=== PATIENT | female | born 1965 | race Caucasian/White ===

== ENCOUNTER 2017-01-07 00:40 | Observation (INO) ==
[2017-01-07] MEDS ORDERED: Aspirin 81 MG TAB.CHEW PO ONE (01:00)
[2017-01-07] MEDS ORDERED: cloNIDine HCl 0.1 MG TABLET PO STA (01:01)
--- NOTE | 2017-01-07 01:01 | Emergency Department Note ---
Disposition Clinical Impression: Chest pain Disposition: Admitted As Inpatient Condition: Fair Referrals: Brendon Ruiz MD [Primary Care Provider] - Time of Disposition: 03:13 ([facility]) Chest Pain HPI - General Chief Complaint: ED Chest Pain Stated Complaint: EPIGASTRIC PAIN/MULTIPLE COMPLAINTS Time Seen by Provider: 01/07/17 00:46 Source: patient Mode of arrival: ambulatory Limitations: no limitations Vital Signs Reviewed: Yes Nursing Notes Reviewed: Yes - History of Present Illness HPI Narrative: As a multitude of complaints she states that she has been having intermittent swelling of the lower extremities left is more common in the right in addition that she has been having intermittent chest pain off and on for a period of time really cannot quantitate how many days or whether it is hours but has had some radiation into the neck heaviness on the chest denies any nausea vomiting or diaphoresis denies diarrhea melena hematochezia or hematemesis patient states though that she just has a very uneasy feeling she can tell that her blood pressures up she denies any neck pain or neck stiffness she has not followed with her family physician in regards to any of these complaints prior to today of any chest pain chest pressure leg pain swelling or edema rash or lesion she does have some underlying health issues which does put her a higher risk for having cardiac disease she has had a previous history of myocardial infarction Pt complaint: chest pain Onset (ago): hour(s) Duration: intermittent Onset: during rest Pain Location: substernal Severity: moderate Severity scale (1-10): 6 Quality: aching Pain Radiation: none Improves with: nothing Worsens with: exertion Associated symptoms: Reports: nausea, dyspnea, palpitations. Denies: vomiting, diaphoresis, sense of impending doom, syncope, fever, cough, leg swelling Treatments prior to arrival chest pain: aspirin - Related Data Home Medications Medication Instructions Recorded Confirmed Aspirin Enteric Coated [Aspirin EC] 81 mg PO DAILY 09/21/14 01/07/17 Gabapentin [Neurontin] 600 mg PO QID 09/21/14 01/07/17 Lisinopril/Hydrochlorothiazide 20 mg PO BID 09/21/14 01/07/17 [Lisinopril-Hctz 20-12.5 mg Tab] Metformin HCl [Fortamet] 1,000 mg PO BID 09/21/14 01/07/17 Metoprolol [Lopressor] 50 mg PO BID 09/21/14 01/07/17 Tizanidine HCl [Zanaflex] 4 mg PO BID 09/21/14 01/07/17 Omeprazole [Omeprazole] 20 mg PO DAILY 08/15/15 01/07/17 Oxycodone HCl/Acetaminophen 1 each PO PRN PRN 06/25/16 01/07/17 [Percocet 10-325 mg Tablet] Previous Rx's Medication Instructions Recorded Loratadine [Claritin] 10 mg PO DAILY #5 tablet 11/27/14 Ipratropium/Albuterol Neb [Duoneb] 3 ml IH Q6HR #30 vial.neb 08/15/15 Ibuprofen [Motrin] 800 mg PO Q8HR PRN #30 tablet 05/24/16 Cyclobenzaprine [Flexeril] 10 mg PO TID #15 tablet 06/25/16 Allergies Allergy/AdvReac Type Severity Reaction Status Date / Time Sulfa (Sulfonamide Allergy Unresponsiv Verified 08/06/16 20:19 Antibiotics) e codeine AdvReac Nausea Verified 08/06/16 20:19 All systems ED: reviewed and negative except as stated. Review of Systems: As Per HPI Constitutional: Reports: weakness. Denies: fever, chills Eyes: Denies: eye pain, eye discharge ENT ED: Denies: ear pain, throat pain Cardiovascular: Denies: chest pain, palpitations Respiratory: Reports: dyspnea. Denies: cough, wheezes Gastrointestinal: Denies: abdominal pain, nausea, vomiting Genitourinary: Denies: urgency, dysuria Musculoskeletal: Denies: back pain, neck pain Integumentary: Denies: rash, abrasion Neurological: Denies: headache, weakness Psychiatric: Denies: anxiety, depression Endocrine: Denies: fatigue Hematological/Lymphatic: Denies: easy bleeding Allergic/Immunologic: Denies: facial swelling Chest Pain PMH - Past Medical History Medical history: Reports: asthma, cancer, COPD, diabetes, fibromyalgia, hypertension, kidney stones, migraine, myocardial infarction, other Surgical history: Reports: cholecystectomy, herniorrhaphy, hysterectomy, orthopedic, other (Patient states she has had multiple surgeries to her cervical spine.), other (Tonsillectomy) Psychiatric history: Reports: no psych history 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 - Social History Smoking Status: Current every day smoker Alcohol use: Reports: none Drug use: Reports: none Physical Exam - General Limitations: no limitations General appearance: alert, in no apparent distress, anxious - Head Head exam: atraumatic, normocephalic, normal inspection - Eye Eye exam: Present: normal appearance, PERRL, EOMI - ENT ENT exam: normal exam, normal oropharynx, mucous membranes moist, normal external ear exam - Neck Neck exam: Present: normal inspection, full ROM, trachea midline - Chest Chest inspection: Present: normal inspection, symmetric chest wall rise - Respiratory Respiratory exam: Present: normal lung sounds bilaterally - Cardiovascular Cardiovascular exam: Present: regular rate, normal rhythm, normal heart sounds - Abdominal Exam Abdominal exam: Present: soft, Non-Tender, normal bowel sounds. Absent: mass, pulsatile mass - Expanded Upper Extremity Exam Shoulder exam: Present: normal inspection, full ROM Arm exam: Present: normal inspection, full ROM Elbow exam: Present: normal inspection, full ROM Forearm/Wrist exam: Present: normal inspection, full ROM Hand exam: Present: normal inspection, full ROM Neurosensory exam: Normal: radial nerve, ulnar nerve, median nerve Vascular exam: Normal: capillary refill, radial pulse, ulnar pulse - Expanded Lower Extremity Exam Hip/Pelvis exam: Present: normal inspection, full ROM Upper leg exam: Present: normal inspection, full ROM Knee exam: Present: normal inspection, full ROM Lower leg exam: Present: normal inspection, full ROM. Absent: Homans' sign Ankle exam: Present: normal inspection, full ROM, swelling (Faint) Foot/toe exam: Present: normal inspection, full ROM, swelling (faint) Neurovascular/Tendon exam: Present: normal capillary refill, normal fine/light touch. Absent: motor deficit, sensory deficit, tendon deficit Gait: observed and normal - Back Exam Back exam: Present: normal inspection, full ROM. Absent: muscle spasm - Neurological Exam Neurological exam: Present: alert, oriented X3, CN II-XII intact - Psychiatric Psychiatric exam: Present: normal affect, normal mood, anxious - Skin Skin exam: Present: warm, dry, intact, normal color Course Course Narrative: Patient seen and examined patient had multiple system workup to try to determine etiologies for her discomfort including that of pulmonary emboli myocardial infarction angina patient resting comfortably at time Vital Signs Temperature 97.9 F 01/07/17 00:46 Pulse Rate 74 01/07/17 00:46 Respiratory Rate 22 01/07/17 00:46 Blood Pressure 194/117 01/07/17 00:46 O2 Sat by Pulse Oximetry 94 01/07/17 00:46 Temperature 97.9 F 01/07/17 00:47 Pulse Rate 74 01/07/17 00:47 Respiratory Rate 22 01/07/17 00:47 Blood Pressure 194/117 01/07/17 00:47 O2 Sat by Pulse Oximetry 94 01/07/17 00:47 Oxygen Delivery Oxygen Delivery Room Air Chest Pain - MDM Narrative Medical decision making narrative: Pulmonary emboli congestive heart failure effusion myopathy - Differential Diagnosis Likely: unstable angina pectoris, st elevation myocardial infraction, chest pain - Medical Records Medical records reviewed: Yes I reviewed the patient's medical records. - Lab Data Lab results reviewed: Yes I reviewed the patient's lab results. - Radiology Data Radiology results reviewed: Yes I reviewed the patient's radiology results. ITS Impressions Chest X-Ray 01/07/17 00:59 IMPRESSION: No acute disease. D/ / Alireza Ross MD / Alireza Ross MD Interpreting Provider: Alireza Ross MD Chest CTA 01/07/17 01:29 IMPRESSION: No definite evidence of pulmonary embolism or acute pulmonary abnormality. D/ / Alireza Ross MD / Alireza Ross MD Interpreting Provider: Alireza Ross MD - EKG Data EKG attestation: Yes I reviewed and interpreted this EKG. EKG results narrative: Sinus rhythm T-wave changes noted in 1 aVL and V6 ane pattern somewhat noted rate 76 hear 151 QRS 101 Q-T 376 axis XLIX Heart Score - Score History: Moderately Suspicious EKG: Non Specific repolarisation Disturbance Age: 45-65 Risk Factors: Equal/Greater than 3 risk factor or history of atherosclerotic disease Critical Care Time Critical Care Time: No
[2017-01-07 01:14] LABS: Basophils # 0.1 K/mcL (0.0-0.2); Basophils % 0.5 %; Eosinophils # 0.3 K/mcL (0.0-0.6); Eosinophils % 2.3 %; Hematocrit 45.2 % (35.3-44.9); Hemoglobin 15.4 g/dL (11.5-15.4); Immature Granulocytes % 0.4 % (0-4); Lymphocytes # 3.6 K/mcL (0.6-4.6); Lymphocytes % 27.4 %; Mean Corpuscular HGB Conc 34.1 g/dL (31.6-35.5); Mean Corpuscular Hemoglobin 30.1 pg (28.0-33.3); Mean Corpuscular Volume 88.5 fL (83.0-100.0); Mean Platelet Volume 9.9 fL (9.4-12.4); Monocytes # 1.1 K/mcL (0.0-1.3); Monocytes % 8.4 %; Neutrophils # 8.1 K/mcL (1.6-8.9); Platelet Count 289 K/mcL (140-400); Red Blood Count 5.11 M/mcL (3.82-4.97); Red Cell Distribution Width 13.6 % (11.5-14.5)
[2017-01-07 01:22] LABS: INR 1.1; Prothrombin Time 11.8 Seconds (9.4-12.1)
[2017-01-07 01:31] LABS: BUN/Creatinine Ratio 20 (6-26); Blood Urea Nitrogen 19 mg/dL (7-20); Carbon Dioxide 21 mEq/L (19-29); Chloride 100 mEq/L (98-109); Glucose 145 mg/dL (70-99); Osmolality,Calculated 289 (280-300); Potassium 3.9 mEq/L (3.5-4.5); Sodium 137 mEq/L (136-145); eGFR For African Americans > 60 (> 60); eGFR For Non-African Americans > 60 (> 60)
[2017-01-07 01:54] LABS: Thyroid Stimulating Hormone 4.227 mcIU/mL (0.350-4.840)
[2017-01-07] MEDS ORDERED: D5% in Water 1,000 ML IVC PRN (03:53)
[2017-01-07] MEDS ORDERED: *HR* OxyCODONE/APAP 10/325 TABLET PO PRN ×4 (03:53→06:14)
[2017-01-07] MEDS ORDERED: *HR* HYDROcodone/Acet 5/325 mg TABLET PO PRN ×2 (03:53→05:34)
[2017-01-07] MEDS ORDERED: *HR* Dextrose 50 % in Water (Syg) 50 ML SYRINGE IVP PRN (03:53)
[2017-01-07] MEDS ORDERED: Ibuprofen 800 MG TABLET PO PRN ×2 (03:53→05:27)
[2017-01-07] MEDS ORDERED: Mag Hydrox/Al Hydrox/Simeth 30 ML UDC PO PRN (03:53)
[2017-01-07] MEDS ORDERED: Dextrose Gel 15 GM PO PRN ×2 (03:53)
[2017-01-07] MEDS ORDERED: Naloxone 0.4 MG/ML INJ IVP PRN (03:53)
[2017-01-07] MEDS ORDERED: Ipratropium/Albuterol Neb 3 ML IH SCH (06:00)
[2017-01-07 06:43] VITALS: BP 147/80
[2017-01-07] MEDS ORDERED: Insulin LISPRO 300 UNITS/3 ML VIAL SQ SCH (07:30)
[2017-01-07] MEDS ORDERED: *HR* Metformin 500 MG TABLET PO SCH (08:00)
[2017-01-07] MEDS ORDERED: Gabapentin 300 MG CAPSULE PO SCH (09:00)
[2017-01-07] MEDS ORDERED: Aspirin Enteric Coated 81 MG Tablet PO SCH (09:00)
[2017-01-07] MEDS ORDERED: Lisinopril 20 MG TABLET PO SCH (09:00)
[2017-01-07] MEDS ORDERED: tiZANidine 4 MG TABLET PO SCH (09:00)
[2017-01-07] MEDS ORDERED: Loratadine 10 MG TABLET PO SCH (09:00)
[2017-01-07] MEDS ORDERED: hydroCHLOROthiazide 25 MG TABLET PO SCH (09:00)
--- NOTE | 2017-01-07 09:39 | Internal Med History&Physical ---
Date of Encounter: 01/07/17 Time of Encounter: 09:10 Assessment and Plan (1) Chest pain Current visit: Yes Status: Acute Repeat cardiac enzymes were ordered through emergency room. Qualifiers: Chest pain type: unspecified Qualified Code(s): R07.9 - Chest pain, unspecified (2) Elevated d-dimer Current visit: Yes Status: Acute Chest CTA done in ER was negative for PE. Internal Medicine - H&P: HPI Chief complaint: Chest discomfort, leg swelling Admitted From: Home Plans for Post Hospital Care: Home History of present illness: Ms. Hughes is a 51 year old female who came to emergency room complaining of discomfort in her chest that has been intermittent for several months. It seemed to be slightly worse over the last 2 days. She describes as a feeling of "heaviness" in her epigastric/lower chest area that radiated up into her left chest. She reported her blood pressure was elevated at 191/97 at home. She felt she had increased swelling of her ankles and that her eyes were "glazed ". She came to emergency room and was evaluated and admitted to [facility] for ongoing care needs. She states she feels significantly improved now and wishes to be discharged home. Her cardiovascular history is significant for hypertension. She states her blood pressures fluctuate significantly. She has known ASHD status post DE in 2010. She had a heart catheterization at that time without intervention. A Regadenosonson stress test done 08/08/2014 showed perfusion imaging negative for ischemia or infarct. EKG was nondiagnostic for ischemia due to baseline abnormal ST findings. She reports dyspnea and chest tightness on exertion. She was told she had peripheral artery disease on distal runoff at the heart catheter. Ankle brachial index studies done 06/05/2014 showed index of 0.87 on the right dorsalis pedis and 0.94 and the left dorsalis pedis. She denies a diagnosis of heart failure however an echocardiogram done May 2015 showed LVEF of 70-75% but moderate LV diastolic dysfunction. There was moderate concentric LVH with the interventricular septum and posterior wall thickness measurements elevated at 1.40 cm. No significant valvular abnormalities were noted. She denies DVT or pulmonary embolus. Past Med Surg Social Fam HX - Past Medical History Medical history: asthma, cancer, COPD, diabetes, fibromyalgia, hypertension, kidney stones, migraine, myocardial infarction, other Psychiatric history: no psych history - Past Surgical History Surgical History: cholecystectomy, herniorrhaphy, hysterectomy, orthopedic, other, other - Social History Smoking Status: Current every day smoker Smokeless Tobacco Status: No Alcohol use: occasionally Drug use: none Internal Medicine - H&P: Meds Aspirin Enteric Coated [Aspirin EC] 81 mg PO DAILY 09/21/14 [History] Gabapentin [Neurontin] 600 mg PO QID 09/21/14 [History] Lisinopril/Hydrochlorothiazide [Lisinopril-Hctz 20-12.5 mg Tab] 20 mg PO BID 04/06 [History] Metformin HCl [Fortamet] 1,000 mg PO BID 09/21/14 [History] Metoprolol [Lopressor] 50 mg PO BID 09/21/14 [History] Tizanidine HCl [Zanaflex] 4 mg PO BID 09/21/14 [History] Loratadine [Claritin] 10 mg PO DAILY #5 tablet 11/27/14 [Rx] Ipratropium/Albuterol Neb [Duoneb] 3 ml IH Q6HR #30 vial.neb 08/15/15 [Rx] Omeprazole [Omeprazole] 20 mg PO DAILY 08/15/15 [History] Ibuprofen [Motrin] 800 mg PO Q8HR PRN #30 tablet 05/24/16 [Rx] Cyclobenzaprine [Flexeril] 10 mg PO TID #15 tablet 06/25/16 [Rx] Oxycodone HCl/Acetaminophen [Percocet 10-325 mg Tablet] 1 each PO PRN PRN [History] 3 Allergy/AdvReac Type Severity Reaction Status Date / Time Sulfa (Sulfonamide Allergy Unresponsiv Verified 08/06/16 20:19 Antibiotics) e codeine AdvReac Nausea Verified 08/06/16 20:19 All Systems PM: A 10-system review of systems was performed and is negative for pertinent findings except as documented above in the HPI. Review of systems: Gen.: She states her weight has been stable the past few months Cardiovascular: As per history of present illness Respiratory: She has smoked since age 14 up to 2 packs per day. She claims a diagnosis of COPD/emphysema but does not use home oxygen. She states she has been diagnosed with JOSE but does not use CPAP GI: She has been diagnosed with fatty liver disease. She states she uses an occasional alcoholic drink. She has had cholecystectomy. She denies other disorders of her liver or exocrine pancreas. : She has had kidney stones in the past. She denies other kidney or bladder disorders. She does have urinary leakage/incontinence. Neurologic: She reports she has bilateral carpal tunnel syndrome. She is being screened for multiple sclerosis with regular MRI studies through a [place] neurologist. She reports she has had TIAs in the past. She states she has diabetic peripheral neuropathy. She denies large distribution strokes or seizures. Endocrine: She was diagnosed with DM 2 in 2010. She has hyperlipidemia but does not take medication. She denies thyroid disease. Hematology/oncology: She reports cervical cancer with curative hysterectomy in 1989. She denies other internal malignancies or anemia. Psychiatric: She has anxiety but does not take medication at this time. She denies other mental health diagnoses. 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 She had cervical spine fusion surgery in 2010. - Constitutional Vitals: Temp Pulse Resp BP Pulse Ox 98.3 F 70 18 147/80 97 01/07/17 06:43 01/07/17 06:43 01/07/17 06:43 01/07/17 06:43 01/07/17 06:43 Exam: Gen.: She is a well-developed female resting comfortably in bed who appears in no acute distress at present time HEENT: Head is atraumatic and normocephalic. Eyes: EOMI. There is no scleral icterus. Mouth: Mucosa is moist. Neck: Supple and nontender. There is no thyromegaly or adenopathy noted. Heart: Regular without murmurs gallops or ectopics Lungs: No wheezes or crackles are heard. Chest: She is nontender in her chest wall to palpation. Abdomen: There is mild discomfort in the left lower quadrant palpation. No masses or guarding are noted. Extremities: There is no cyanosis edema or clubbing noted. Dorsalis pedis and posttibial pulses are 1-2 over 2 bilaterally. Her feet are warm to touch. Neurologic: Mental status: She is talkative and a good historian. Cranial nerves: Smile is symmetric. Forehead wrinkles bilaterally. Tongue protrudes midline. EOMI. Motor: There is no pronator drift. Cerebellar: Finger to nose is intact bilaterally. Skin: Warm and dry Internal Med - H&P Results - Labs CBC & Chem 7: 01/07/17 00:55 01/07/17 00:55 Labs: Cardiac Enzymes 01/07/17 Range/Units 07:17 Troponin I 0.01 (0-0.03) ng/mL
--- NOTE | 2017-01-07 10:08 | Discharge Summary ---
Date of Encounter: 01/07/17 Time of Encounter: 09:10 - Discharge Diagnosis (1) Chest pain Priority: Primary Status: Resolved Qualifiers: Chest pain type: unspecified Qualified Code(s): R07.9 - Chest pain, unspecified (2) Elevated d-dimer Priority: Secondary Status: Acute - Discharge Medications Prescriptions: Isosorbide MONOnitrate (24 HR) [Imdur] 30 mg PO DAILY #30 tab.er.24h Nitroglycerin [Nitrostat] 0.4 mg SL Q5M PRN #1 vial PRN Reason: Chest Pain Home Medications: Aspirin Enteric Coated [Aspirin EC] 81 mg PO DAILY 09/21/14 [History] Gabapentin [Neurontin] 600 mg PO QID 09/21/14 [History] Lisinopril/Hydrochlorothiazide [Lisinopril-Hctz 20-12.5 mg Tab] 20 mg PO BID 04/06 [History] Metformin HCl [Fortamet] 1,000 mg PO BID 09/21/14 [History] Metoprolol [Lopressor] 50 mg PO BID 09/21/14 [History] Tizanidine HCl [Zanaflex] 4 mg PO BID 09/21/14 [History] Loratadine [Claritin] 10 mg PO DAILY #5 tablet 11/27/14 [Rx] Ipratropium/Albuterol Neb [Duoneb] 3 ml IH Q6HR #30 vial.neb 08/15/15 [Rx] Omeprazole 20 mg PO DAILY 08/15/15 [History] Ibuprofen [Motrin] 800 mg PO Q8HR PRN #30 tablet 05/24/16 [Rx] Cyclobenzaprine [Flexeril] 10 mg PO TID #15 tablet 06/25/16 [Rx] Oxycodone HCl/Acetaminophen [Percocet 10-325 mg Tablet] 1 each PO PRN PRN [History] Isosorbide MONOnitrate (24 HR) [Imdur] 30 mg PO DAILY #30 tab.er.24h 01/07/17 [ Rx] Nitroglycerin [Nitrostat] 0.4 mg SL Q5M PRN #1 vial 01/07/17 [Rx] Allergies/Adverse Reactions: 3 Allergy/AdvReac Type Severity Reaction Status Date / Time Sulfa (Sulfonamide Allergy Unresponsiv Verified 08/06/16 20:19 Antibiotics) e codeine AdvReac Nausea Verified 08/06/16 20:19 Date of admission: 01/07/17 03:21 Primary care physician: Brendon Ruiz MD - Patient Status Disposition: Home, Self-Care Condition: Fair Functional capacity at discharge: independent ambulation Overall status at discharge: patient is progressing back to baseline - Discharge Instructions Follow Up With: Brendon Ruiz MD [Primary Care Provider] - 1 week - Diet and Activity Activity: resume usual activities as tolerated Diet: diabetic diet Hospital course: Ms. Hughes is a 51 year old female who came to emergency room complaining of discomfort in her chest that has been intermittent for several months. It seemed to be slightly worse over the last 2 days. She describes as a feeling of "heaviness" in her epigastric/lower chest area that radiated up into her left chest. She reported her blood pressure was elevated at 191/97 at home. She felt she had increased swelling of her ankles and that her eyes were "glazed ". She came to emergency room and was evaluated and admitted to [facility] for ongoing care needs. Initial orders were written by the emergency room physician. I saw her on January 07 and performed the history and physical and discharge. Repeat cardiac enzymes showed no evidence of myocardial damage. Her EKG did not appear significantly changed from previous EKG. I reviewed her past cardiac workup. I encouraged her strongly to become a nonsmoker. She reported her chest pain had resolved when I saw her. I will start her on Imdur and give her a new prescription for Nitrostat. She will follow with her PCP Dr. Ruiz within 1 week. He can order further evaluation such as repeat stress test and/ or referral for heart catheterization as clinically needed. The cause of elevated d-dimer was not determined with certainty. I did not think there was a significant likelihood she had DVT. I encouraged her to become a nonsmoker. I encouraged her to discuss her PCP her sleep apnea and explained some of the dangers of untreated JOSE. Room air oximetry will be checked on a 6 minute walk prior to discharge. - Time Spent with Patient Total time spent providing and/or coordinating discharge services: - Constitutional Vitals: Temp Pulse Resp BP Pulse Ox 98.3 F 70 18 147/80 97 01/07/17 06:43 01/07/17 06:43 01/07/17 06:43 01/07/17 06:43 01/07/17 06:43
--- NOTE | 2017-01-08 19:43 | Electrocardiograph Report ---
[address] [place], [place] [address] Test Date: 2017-01-07 Pat Name: Eddy Hughes Department: [id number] Room: [facility] Gender: F Drafter Mechanical: TT : 1965 Requested By: Juliane Brooks Order Number: [id number] Reading MD: Jay Jay Steele MD Measurements Intervals [place] Rate: 76 P: -25 TX: 151 QRS: 49 QRSD: 101 T: 127 QT: 376 QTc: 406 Interpretive Statements SINUS RHYTHM LATERAL ISCHEMIA Electronically Signed On 01-08-2017 19:41:08 EST by Jay Jay Steele MD
== END 2017-01-07 10:51 | disposition home or self-care (01) ==
LOC: INPPIK 00:40 → EMEROOPIK 00:40 → INPPIK 03:27
PROVIDERS: ADMIT Internal Medicine; ATTEND Internal Medicine